=== PATIENT | male | born 1955 | race Caucasian/White ===

== ENCOUNTER 2019-06-16 14:04 | Emergency (ER) | payer OTHER ==
[~2019-06-16] VITALS: Ht 182.9 cm; Wt 78.5 kg
[2019-06-16 14:11] VITALS: Ht 182.9 cm; Wt 78.5 kg
[2019-06-16 18:00] VITALS: BP 145/75
== END 2019-06-16 18:00 | disposition home or self-care (01) ==
LOC: ED 14:04
DX: S33.5XXA Sprain of ligaments of lumbar spine, initial encounter (principal); X58.XXXA Exposure to other specified factors, initial encounter; Y93.89 Activity, other specified; Y92.89 Other specified places as the place of occurrence of the external cause; Y99.8 Other external cause status